=== PATIENT | male | born 1935 | race Caucasian/White ===

== ENCOUNTER 2017-12-11 12:33 | Outpatient (RCR) | payer MEDICARE, OTHER ==
[~2017-12-11 12:33] MED LIST: ASPIRIN 81M81 MG/TA2 PO; ATENOLOL PO; BENADRYL PO; BUFFERED ASPIR325 M1 PO; CARDI-OMEGA1000 MG PO; CIALIS; CLARITIN; DIOVAN80 MG PO; DYAZIDE 25 MG-31 CAP PO; LEXAPRO 10MG10 MG PO; LIPITOR PO; NORVASC; PRILOSEC10 MG PO; TOPROL XL 25MG25 MG PO; TYLENOL 325MG325 MG PO; ZOFRAN ODT4 MG PO; [UNRECOGNIZED DRUG - OTHER]
== END 2017-12-16 15:50 | disposition still patient (30) ==
LOC: COL.CR 12:33
DX: Z48.812 Encounter for surgical aftercare following surgery on the circulatory system (principal); Z95.5 Presence of coronary angioplasty implant and graft

== ENCOUNTER → 2022-06-07 | Outpatient (CLI) | payer MEDICARE, OTHER | LOC: COL.RAD 09:22 | DX: G93.9 Disorder of brain, unspecified (principal) ==